=== PATIENT | male | born 1960 | race Two or more races ===

== ENCOUNTER 2017-08-14 22:03 | Emergency (ER) | payer OTHER ==
[~2017-08-14] VITALS: Ht 170.2 cm; Wt 95.3 kg
[2017-08-14] MEDS ORDERED: NORCO PRN (22:13)
--- NOTE | 2017-08-14 22:19 | NUR ---
PT STATES HE HAS RT HAND PAIN/SWELLING, WHICH HAS INCREASINGLY WORSENED THE PAST 2 DAYS. PT HAS A HX OF GOUT, AND THINKS ITS A FLARE UP.
--- NOTE | 2017-08-14 22:22 | NUR ---
TABITHA JOHNSON AT BEDSIDE FOR MSE.
[2017-08-14] MEDS ORDERED: ONDANSETRON 4 MG/2 ML VIAL ONE (22:29)
[2017-08-14] MEDS ORDERED: MORPHINE SULFATE 4 MG/1 ML DISP.SYRIN ONE (22:29)
[2017-08-14] MEDS ORDERED: ONDANSETRON IV *ER 4 MG/2 ML VIAL IV ONE (22:30)
[2017-08-14] MEDS ORDERED: MORPHINE SULFATE 4 MG/1 ML DISP.SYRIN IV ONE (22:30)
--- NOTE | 2017-08-14 23:06 | NUR ---
Patient discharged to home in stable conditon. Written and verbal after care instructions given. Patient verbalizes understanding of instructions. Sling applied per MD order. IV removed w/ catheter intact. Pressure applied, no bleeding noted at site. Pt ambulated from ER w/ steady gait, accompanied by .
[2017-08-14 23:09] VITALS: BP 158/102
[2017-08-14] MEDS ORDERED: KETOROLAC TROMETHAMINE 60 MG INJ IM ONE ×2 (23:13→23:15)
== END 2017-08-14 23:19 | disposition home or self-care (01) ==
LOC: ER 22:03
DX: M10.9 Gout, unspecified (principal); I10 Essential (primary) hypertension; Z79.891 Long term (current) use of opiate analgesic
CPT/HCPCS: A4663; J1885; J2270; J2405